=== PATIENT | male | born 1980 | race Caucasian/White ===

== ENCOUNTER 2016-06-24 13:28 | Emergency (ER) | payer OTHER, BC ==
[~2016-06-24] VITALS: Ht 180.3 cm; Wt 98.9 kg
[2016-06-24 13:40] VITALS: BP 122/85; PULSE 79; RESP 16; TEMP 98.7; O2SAT 98
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
[2016-06-24] MEDS ORDERED: BACI500O2 TOPICAL (17:30)
[2016-06-24] MEDS ORDERED: NAPR500 PO (17:30)
[2016-06-24] MEDS ORDERED: CYCL1TAB29 PO (17:30)
[2016-06-24] MEDS ORDERED: TETANUS/DIPHTHERIA TOXOID ADULT 0.5 ML VIAL IM ONE (17:30)
== END 2016-06-24 17:50 | disposition home or self-care (01) ==
LOC: PHED 13:28 → PHEFT 17:50
DX: S46.812A Strain of other muscles, fascia and tendons at shoulder and upper arm level, left arm, initial encounter (principal); S50.811A Abrasion of right forearm, initial encounter; S60.413A Abrasion of left middle finger, initial encounter; V43.52XA Car driver injured in collision with other type car in traffic accident, initial encounter; Y93.9 Activity, unspecified; Y92.9 Unspecified place or not applicable; Y99.9 Unspecified external cause status
CPT/HCPCS: 90471; 90714